=== PATIENT | female | born 1940 | race Caucasian/White ===

== ENCOUNTER 2016-10-01 12:18 | Outpatient (CLI) ==
[2016-06-04 12:34] VITALS: BMI 26.8
[2016-10-01 13:33] LABS: BASOPHILS % (AUTO) 0.6 % (0.0-3.0); EOSINOPHILS # (AUTO) 0.1 K/ul (0.0-0.7); EOSINOPHILS % (AUTO) 1.3 % (0.0-7.0); HEMATOCRIT 37.4 % (37.0-47.0); HEMOGLOBIN 12.4 g/dl (12.0-16.0); IMMATURE GRANULOCYTE % (AUTO) 0.3 % (0.0-5.0); LYMPHOCYTES # (AUTO) 1.9 K/uL (0.60-3.4); LYMPHOCYTES % (AUTO) 28.7 (10.0-50.0); MEAN CORPUSCULAR HEMOGLOBIN 30.8 pg (27.0-31.0); MEAN CORPUSCULAR HGB CONC 33.2 (31.8-35.4); MONOCYTES # (AUTO) 0.4 K/uL (0.4-2.0); MONOCYTES % (AUTO) 5.4 (0-10); NEUTROPHILS # (AUTO) 4.3 K/ul (2.0-6.9); NEUTROPHILS % (AUTO) 63.7; PLATELET COUNT 190 10^3/uL (140-440); RED BLOOD COUNT 4.02 10^6/ul (4.20-5.40); WHITE BLOOD COUNT 6.68 K/ul (4.6-10.2)
[2016-10-01 13:39] LABS: ALBUMIN 4.1 g/dL (3.4-5.0); ALBUMIN/GLOBULIN RATIO 1.24; ANION GAP 13.5; BILIRUBIN,TOTAL 0.57 mg/dL (0.00-1.20); BUN/CREATININE RATIO 22.91; CALCIUM 9.8 mg/dL (8.2-10.2); CHOL/HDL RATIO 3.9 (4.5-5.5); CREATININE 0.96 mg/dL (0.60-1.30); POTASSIUM 4.5 mmol/L (3.5-5.10); TOTAL PROTEIN 7.4 g/dL (5.8-8.1)
== END 2016-10-01 12:19 | disposition home or self-care (01) ==
LOC: LAB 12:18
PROVIDERS: ATTEND Emergency Medicine
DX: E78.5 Hyperlipidemia, unspecified (principal); I10 Essential (primary) hypertension; M19.90 Unspecified osteoarthritis, unspecified site
CPT/HCPCS: 36415; 80053; 80061; 85025

== ENCOUNTER 2017-03-07 11:44 | Outpatient (CLI) ==
[2016-06-04 12:34] VITALS: BMI 26.8
[2017-03-07 13:08] LABS: BASOPHILS % (AUTO) 0.6 % (0.0-3.0); EOSINOPHILS # (AUTO) 0.1 K/ul (0.0-0.7); EOSINOPHILS % (AUTO) 2.2 % (0.0-7.0); HEMATOCRIT 35.6 % (37.0-47.0); HEMOGLOBIN 11.9 g/dl (12.0-16.0); IMMATURE GRANULOCYTE % (AUTO) 0.2 % (0.0-5.0); LYMPHOCYTES # (AUTO) 1.5 K/uL (0.60-3.4); LYMPHOCYTES % (AUTO) 27.5 (10.0-50.0); MEAN CORPUSCULAR HEMOGLOBIN 31.1 pg (27.0-31.0); MEAN CORPUSCULAR HGB CONC 33.4 (31.8-35.4); MONOCYTES # (AUTO) 0.4 K/uL (0.4-2.0); MONOCYTES % (AUTO) 7.5 (0-10); NEUTROPHILS # (AUTO) 3.3 K/ul (2.0-6.9); PLATELET COUNT 176 10^3/uL (140-440); RED BLOOD COUNT 3.83 10^6/ul (4.20-5.40); WHITE BLOOD COUNT 5.35 K/ul (4.6-10.2)
[2017-03-07 13:53] LABS: ALBUMIN 3.8 g/dL (3.4-5.0); ALBUMIN/GLOBULIN RATIO 1.19; ANION GAP 16.3; BILIRUBIN,TOTAL 0.4 mg/dL (0.00-1.20); BUN/CREATININE RATIO 29.21; CALCIUM 10.4 mg/dL (8.2-10.2); CHOL/HDL RATIO 4.7 (4.5-5.5); CREATININE 0.89 mg/dL (0.60-1.30); POTASSIUM 4.3 mmol/L (3.5-5.10)
== END 2017-03-07 11:45 | disposition home or self-care (01) ==
LOC: LAB 11:44
PROVIDERS: ATTEND Emergency Medicine
DX: E78.5 Hyperlipidemia, unspecified (principal); I10 Essential (primary) hypertension
CPT/HCPCS: 36415; 80053; 80061; 84443; 85025

== ENCOUNTER 2017-04-21 14:02 | Inpatient (IN) ==
[2017-04-21 15:44] VITALS: BMI 23.5
[2017-04-21 16:20] LABS: CREATINE KINASE 38 U/L
[2017-04-21] MEDS: SODIUM CHLORIDE 1,000 ML IV SCH (17:50)
[2017-04-21] MEDS: REQUIP PO SCH ×2 (17:53→21:20)
[2017-04-21] MEDS: KEFLEX PO SCH (21:22)
[2017-04-21] MEDS: MEVACOR PO SCH (21:25)
[2017-04-21] MEDS ORDERED: MEVACOR PO SCH (21:30)
[2017-04-21 23:29] LABS: CREATINE KINASE 33 U/L
[2017-04-22 03:39] LABS: ADD URINE MICROSCOPIC YES; BILIRUBIN,URINE Negative (NEGATIVE); KETONES,URINE Negative (NEGATIVE); LEUKOCYTE ESTERASE ,URINE Trace (NEGATIVE); NITRITE,URINE Negative (NEGATIVE); PROTEIN,URINE Negative (NEGATIVE); URINE, BLOOD Negative (NEGATIVE)
[2017-04-22 05:17] LABS: ALBUMIN/GLOBULIN RATIO 1.11; BILIRUBIN,TOTAL 0.27 mg/dL (0.00-1.20); BUN/CREATININE RATIO 33.76; CALCIUM 8.9 mg/dL (8.2-10.2); CREATININE 0.77 mg/dL (0.60-1.30); TOTAL PROTEIN 5.7 g/dL (5.8-8.1)
[2017-04-22 07:27] LABS: BASOPHILS % (AUTO) 0.2 % (0.0-3.0); EOSINOPHILS % (AUTO) 0.1 % (0.0-7.0); HEMATOCRIT 33.7 % (37.0-47.0); HEMOGLOBIN 11.5 g/dl (12.0-16.0); IMMATURE GRANULOCYTE % (AUTO) 0.8 % (0.0-5.0); LYMPHOCYTES # (AUTO) 1.9 K/uL (0.60-3.4); LYMPHOCYTES % (AUTO) 15.3 (10.0-50.0); MEAN CORPUSCULAR HEMOGLOBIN 31.5 pg (27.0-31.0); MEAN CORPUSCULAR HGB CONC 34.1 (31.8-35.4); MEAN CORPUSCULAR VOLUME 92.3 fl (81.0-99.0); MONOCYTES # (AUTO) 0.5 K/uL (0.4-2.0); MONOCYTES % (AUTO) 3.7 (0-10); NEUTROPHILS % (AUTO) 79.9; PLATELET COUNT 166 10^3/uL (140-440); RED BLOOD COUNT 3.65 10^6/ul (4.20-5.40); WHITE BLOOD COUNT 12.47 K/ul (4.6-10.2)
[2017-04-22] MEDS ORDERED: ASPIRIN EC PO SCH (08:00)
[2017-04-22] MEDS: ASPIRIN EC PO SCH (08:12)
[2017-04-22] MEDS: COREG PO SCH (08:12)
[2017-04-22] MEDS ORDERED: EPA PO SCH (09:00)
[2017-04-22] MEDS ORDERED: MULTIVITAMIN PO SCH (09:00)
[2017-04-22] MEDS ORDERED: OMEGA PO SCH (09:00)
[2017-04-22] MEDS ORDERED: FISH OIL PO SCH (09:00)
[2017-04-22] MEDS ORDERED: VITAMIN D3 PO SCH ×21 (09:00)
[2017-04-22] MEDS ORDERED: NON-FORMULARY MEDICATION (Mometasone Furoate [Nasonex] 17 GM) NS SCH ×22 (09:00)
[2017-04-22] MEDS ORDERED: NON-FORMULARY MEDICATION (Ferrous Sulfate [Ferrous Sulfate] 325 MG) PO SCH ×22 (09:00)
[2017-04-22] MEDS ORDERED: CALCIUM CARBONATE PO SCH ×21 (09:00)
[2017-04-22] MEDS ORDERED: DHA PO SCH (09:00)
[2017-04-22] MEDS: OMEGA-3 FISH OIL PO SCH (09:36)
[2017-04-22] MEDS: ZESTORETIC 20-12.5 MG TAB PO SCH (09:37)
[2017-04-22] MEDS: KEFLEX PO SCH ×2 (09:37→20:03)
[2017-04-22] MEDS: CALCIUM 500 + VIT D 200 MG TABLET PO SCH (09:37)
[2017-04-22] MEDS: FLONASE NAS SCH (09:38)
[2017-04-22] MEDS: MULTIVITAMIN PO SCH (09:38)
[2017-04-22] MEDS: FERROUS SULFATE PO SCH (09:38)
[2017-04-22] MEDS: COCONUT OIL 1000 MG PO SCH (09:40)
[2017-04-22] MEDS: ZINC GLUCONATE 50 MG PO SCH (09:41)
[2017-04-22] MEDS ORDERED: DECADRON 4 MG/ML SDV IVP STA (12:50)
--- NOTE | 2017-04-22 13:30 | US ---
EXAM: Bilateral carotid artery Doppler History: Dizziness and blurred vision. Technique: Multiple sonographic images through the bilateral internal carotid arteries were obtained . Color duplex Doppler was used to interrogate vascular flow. Findings: The right ICA peak systolic velocity is within normal limits measuring 80 cm/sec. The right ICA/cca PSV ratio is normal at 0.9. The right vertebral artery is patent and demonstrates antegrade flow. G ray scale images demonstrate mild plaque buildup within the proximal right internal carotid artery. The left ICA peak systolic velocity is within normal limits measuring 90 cm/sec. The left ICA/cca PS V ratio is normal at 1.3. The left vertebral artery is patent and demonstrates antegrade flow. Burrows scale images demonstrate mild to moderate plaque buildup within the left internal carotid artery. Impression: No significant hemodynamic stenosis of the bilateral internal carotid arteries.
--- NOTE | 2017-04-22 14:12 | MRI ---
EXAM: Brain MRI without contrast. HISTORY: Vertigo. COMPARISON: Brain MRI 02/23/2015 and greater artery duplex ultrasound 04/22/2017. TECHNIQUE: Multiplanar, multisequence MR images were acquired of the brain without contrast. FINDINGS: The midline structures are central and the craniocervical junction is unremarkable. The v entricles, sulci and cisterns are prominent compatible age related involutional changes. There are n o abnormal extra-axial fluid collections. The brain parenchyma has artifact on the diffusion weighted sequence traversing the lateral ventricle which is not present on the other sequences. There are no areas of restricted diffusion to suggest acute hypoperfusion or infarction. Small scattered FLAIR hyperintensities are present in the suprate ntorial white matter consistent with minor leukomalacia. The corpus callosum has a normal configurat ion. The pituitary gland is small. There are no intraorbital masses. There has been previous lens surgery bilaterally. Minor mucosal t hickening is present in the frontal sinus and scattered in the ethmoid air cells bilaterally. There is mild polypoid mucosal thickening in the right maxillary sinus. Leftward nasal septal deviation is present. Middle ears and mastoids are unremarkable. Flow voids are present in the major intracranial arteries and dural venous sinuses. Minor degenerativ e changes are present in the upper cervical spine. IMPRESSION: 1. Age related involutional changes and minor chronic ischemic small vessel disease. 2. Small pituitary gland. 3. No intracranial mass, hemorrhage or acute cerebral infarct.
--- NOTE | 2017-04-22 15:13 | DI ---
EXAM: Two views of the chest. History: Cough. Comparison: Chest radiograph 03/12/2013 Findings: Heart size is normal. No focal consolidation. Atherosclerotic vascular calcifications. No appreciable pleural fluid and no pneumothorax. No acute osseous abnormalities. Impression: No acute cardiopulmonary process.
[2017-04-22] MEDS ORDERED: LOVASTATIN 40 MG PO SCH ×22 (17:00)
[2017-04-22] MEDS: SODIUM CHLORIDE 1,000 ML IV SCH (19:52)
[2017-04-22] MEDS: MEVACOR PO SCH (20:03)
[2017-04-22] MEDS: REQUIP PO SCH (20:03)
[2017-04-23 04:59] LABS: BASOPHILS % (AUTO) 0.2 % (0.0-3.0); HEMATOCRIT 34.5 % (37.0-47.0); HEMOGLOBIN 11.6 g/dl (12.0-16.0); IMMATURE GRANULOCYTE % (AUTO) 0.9 % (0.0-5.0); LYMPHOCYTES # (AUTO) 1.6 K/uL (0.60-3.4); LYMPHOCYTES % (AUTO) 12.9 (10.0-50.0); MEAN CORPUSCULAR HEMOGLOBIN 30.9 pg (27.0-31.0); MEAN CORPUSCULAR HGB CONC 33.6 (31.8-35.4); MONOCYTES # (AUTO) 0.4 K/uL (0.4-2.0); MONOCYTES % (AUTO) 3.1 (0-10); NEUTROPHILS # (AUTO) 10.5 K/ul (2.0-6.9); NEUTROPHILS % (AUTO) 82.9; PLATELET COUNT 181 10^3/uL (140-440); RED BLOOD COUNT 3.75 10^6/ul (4.20-5.40)
[2017-04-23 05:22] LABS: ALBUMIN 3.1 g/dL (3.4-5.0); ALBUMIN/GLOBULIN RATIO 1.11; BILIRUBIN,TOTAL 0.32 mg/dL (0.00-1.20); BUN/CREATININE RATIO 37.03; CREATININE 0.81 mg/dL (0.60-1.30); TOTAL PROTEIN 5.9 g/dL (5.8-8.1)
[2017-04-23] MEDS: OMEGA-3 FISH OIL PO SCH (08:26)
[2017-04-23] MEDS: CALCIUM 500 + VIT D 200 MG TABLET PO SCH (08:27)
[2017-04-23] MEDS: FERROUS SULFATE PO SCH (08:27)
[2017-04-23] MEDS: COREG PO SCH (08:27)
[2017-04-23] MEDS: ZESTORETIC 20-12.5 MG TAB PO SCH (08:27)
[2017-04-23] MEDS: ASPIRIN EC PO SCH (08:27)
[2017-04-23] MEDS: MULTIVITAMIN PO SCH (08:27)
[2017-04-23] MEDS: KEFLEX PO SCH (08:27)
[2017-04-23] MEDS: FLONASE NAS SCH (08:28)
[2017-04-23] MEDS: ZINC GLUCONATE 50 MG PO SCH (09:00)
[2017-04-23] MEDS: COCONUT OIL 1000 MG PO SCH (09:00)
[2017-04-23 10:47] VITALS: BP 119/65; TEMP 97
--- NOTE | 2017-05-01 10:38 | PN ---
DATE OF SERVICE: 03/22/17 SUBJECTIVE: The patient is admitted with severe dizziness, not able to walk. MRI results are pending. Telemetry showing bradycardia. EKG showing bradycardia. Dizziness has improved today. REVIEW OF SYSTEMS: CONSTITUTIONAL: No fever, no chills. HEENT: Normal. ENDOCRINE: No weight gain, no weight loss. CVS: No angina symptoms. No CHF symptoms. No palpitations. No atypical chest pain for CAD. No shortness of breath. No PND, no orthopnea. RESPIRATORY: No cough, no hemoptysis. GI: No nausea, no vomiting. No abdominal pain. : No hematuria. No polyuria. MUSCULOSKELETAL:. No joint swelling. PSYCHIATRIC: Not anxious. No depression. No suicidal thoughts. No homicidal thoughts. SKIN: Intact. No rash. PHYSICAL EXAMINATION: V/S: BP 192/67, respiratory rate 17, heart rate 69, temperature 97.9, saturation 94% on room air. HEENT: Normocephalic, atraumatic. Mucosa dry. Pallor positive. No icterus. NECK: Supple. No JVD, no carotid bruit. No lymphadenopathy. LUNGS: Decreased entry. Clear to auscultation. No rales or rhonchi. HEART: S1, S2 normal. No S3. No murmur, gallop or regurgitation. ABDOMEN: Soft, nontender. Bowel sounds active. No rigidity. No rebound or guarding. No CVA tenderness. EXTREMITIES: No clubbing, cyanosis or pedal edema. MUSCULOSKELETAL: Grossly intact. NEUROLOGIC: Awake, alert, oriented times three. No focal deficit. LYMPHATIC: No lymph nodes palpable. SKIN: Intact. LABS: White count 12.47, hemoglobin 11.5, hematocrit 33.7, platelet count 166. Sodium 140, potassium 4.0, chloride 103, bicarb 26, BUN 26, creatinine 0.77. UA trace leukocyte esterase. ASSESSMENT: 1. SEVERE DIZZINESS, MOST LIKELY BENIGN POSITIONAL VERTIGO FROM LABRYNTHITIS, RULE OUT STROKE. 2. HISTORY OF HYPERTENSION 3. URTI 4. ANEMIA 5. OSTEOPOROSIS 6. RESTLESS LEG SYNDROME PLAN: 1. Continue IV fluids 2. MRI of the brain, pending report 3. Chest x-ray 4. Carotid ultrasound 5. 1 cc Decadron 6. Will follow with the patient in daily rounds TIME SPENT: More than 35 minutes MTDD
--- NOTE | 2017-05-16 11:47 | DS ---
DATE OF SERVICE: 04/23/17 FINAL DIAGNOSIS: 1. SEVERE DIZZINESS MOST LIKELY BENIGN POSITIONAL VERTIGO FROM LABRYNTHITIS, STROKE HAS BEEN RULED OUT 2. HISTORY OF HYPERTENSION 3. RECENT UPPER RESPIRATORY INFECTION 4. ANEMIA OF CHRONIC DISEASE, STABLE 5. OSTEOPOROSIS 6. RESTLESS LEG SYNDROME 7. HISTORY OF MIGRAINE HEADACHES 8. CATARACT BILATERAL 9. EAR SURGERY/REPAIR 10. 6, PARA 5 11. OSTEOARTHRITIS OF THE KNEE DISCHARGE INSTRUCTIONS: 1. Discharge the patient home 2. Followup at [facility] in 5 to 7 days MEDICATIONS AT DISCHARGE: Aspirin 81 mg p.o. daily Calcium with Vitamin D Coreg 12.5 mg p.o. b.i.d. Coconut Oil Benadryl 50 mg p.o. daily Ferrous Sulfate Lisinopril/Hydrochlorothiazide Mevacor Nasonex Vitamin D Protonix Requip NEW PRESCRIPTIONS: None DIET INSTRUCTIONS: Cardiac and healthy ACTIVITY: As much as tolerated. Take Antivert twice a day as needed for dizziness. No new medications were given. SMOKING: Former smoker DISEASE SPECIFIC EDUCATION: Dizziness, vertigo, fall risk, osteoporosis and fall risk discussed. Osteoporosis and bone fractures discussed. HOSPITAL COURSE: This is a 76-year-old female came to the office with severe dizziness, inability to walk, almost fell down at home. At that time, the patient was admitted to the hospital from the office directly. MRI of the brain and carotid ultrasound was ordered. The patient was given Decadron thinking maybe from benign positional vertigo. MRI did not show any acute findings. Small pituitary gland was seen. Carotid ultrasound done which showed no significant hemodynamic changes. Chest x-ray no acute cardiopulmonary process. Hemoglobin was 11.5, 11.6. BUN and creatinine were steady. Cardiac enzymes were negative. Blood pressure was good. By the next day the patient was alot better. Dizziness was atributed to only benign positional vertigo and questionable labrynthitis, advised to continue Antivert and steroids which were given as outpatient. TIME SPENT: MORE THAN 55 MINUTES MTDD
== END 2017-04-23 13:05 | disposition home or self-care (01) | DRG 149 ==
LOC: MEDSURG A 14:02
PROVIDERS: ADMIT Emergency Medicine; ATTEND Emergency Medicine
DX: H81.10 Benign paroxysmal vertigo, unspecified ear (principal); H83.09 Labyrinthitis, unspecified ear; I10 Essential (primary) hypertension; J06.9 Acute upper respiratory infection, unspecified; D50.0 Iron deficiency anemia secondary to blood loss (chronic); R00.1 Bradycardia, unspecified; M81.0 Age-related osteoporosis without current pathological fracture; G25.81 Restless legs syndrome; M17.9 Osteoarthritis of knee, unspecified; Z86.69 Personal history of other diseases of the nervous system and sense organs; Z79.899 Other long term (current) drug therapy
CPT/HCPCS: 36415; 80053; 81001; 82550; 84484; 85025; 93005; 93010; 99223; 99233; 99239

== ENCOUNTER 2017-08-28 16:12 | Outpatient (CLI) | END 2017-08-28 16:13 | disposition home or self-care (01) | LOC: LAB 16:12 | PROVIDERS: ATTEND Emergency Medicine | DX: E78.5 Hyperlipidemia, unspecified (principal); I10 Essential (primary) hypertension | CPT/HCPCS: 36415; 80053; 80061; 84443; 85025 ==

== ENCOUNTER 2017-11-26 09:40 | Outpatient (CLI) | payer OTHER ==
--- NOTE | 2017-11-26 11:19 | DI ---
EXAM: Three views of the left hand. History: Left hand pain. Findings: No acute fracture or dislocation. No abnormal calcifications or radiopaque foreign bodies . Mild to moderate polyarticular joint space narrowing with a few small dorsal osteophytes involving the IP joints. Mild osteopenia. Impression: 1. No acute osseous abnormality. 2. 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
== END 2017-11-26 09:41 | disposition home or self-care (01) ==
LOC: RAD 09:40
PROVIDERS: ATTEND Emergency Medicine
DX: M79.642 Pain in left hand (principal); E78.5 Hyperlipidemia, unspecified; I10 Essential (primary) hypertension
CPT/HCPCS: 36415; 80053; 80061; 84443; 85025

== ENCOUNTER 2018-02-23 12:59 | Outpatient (CLI) ==
--- NOTE | 2018-02-23 15:15 | DI ---
EXAM: Chest two views HISTORY: Acute upper respiratory infection, unspecified COMPARISON: 04/21/2017 TECHNIQUE: Two views of the chest were performed FINDINGS: The lungs are clear. There is no pleural effusion or pneumothorax. The heart is normal i n size. The mediastinal contour is normal, noting atherosclerosis. There are no acute abnormalities of the bones. IMPRESSION: No acute cardiopulmonary process.
== END 2018-02-23 13:00 | disposition home or self-care (01) ==
LOC: LAB 12:59
PROVIDERS: ATTEND Emergency Medicine
DX: E78.5 Hyperlipidemia, unspecified (principal); I10 Essential (primary) hypertension; J06.9 Acute upper respiratory infection, unspecified
CPT/HCPCS: 36415; 80053; 85025

== ENCOUNTER 2018-04-28 12:30 | Outpatient (CLI) ==
--- NOTE | 2018-04-29 08:55 | MAMMO ---
EXAM: Bilateral digital screening mammogram (2-D and 3-D) History: Screening Comparison: None available. Findings: MLO and CC views of bilateral breasts demonstrate scattered fibroglandular breast parenchy ma. CAD was reviewed by the radiologist. Tomosynthesis was performed. There are no dominant masses , no suspicious microcalcifications and no architectural distortions. Benign bilateral vascular calc ifications. Impression: Benign mammogram. Recommend followup routine screening mammography in 1 year. BIRADS 2
== END 2018-04-28 12:31 | disposition home or self-care (01) ==
LOC: RAD 12:30
PROVIDERS: ATTEND Nurse Practitioner Family
DX: Z12.31 Encounter for screening mammogram for malignant neoplasm of breast (principal)
CPT/HCPCS: 77067

== ENCOUNTER 2018-08-11 10:19 | Outpatient (CLI) | END 2018-08-11 10:20 | disposition home or self-care (01) | LOC: RHC-LAB 10:19 | PROVIDERS: ATTEND Nurse Practitioner Family | DX: J02.9 Acute pharyngitis, unspecified (principal) | CPT/HCPCS: 87651 ==

== ENCOUNTER 2019-01-19 08:18 | Outpatient (CLI) | END 2019-01-19 08:19 | disposition home or self-care (01) | LOC: LAB 08:18 | PROVIDERS: ATTEND Nurse Practitioner Family | DX: E78.5 Hyperlipidemia, unspecified (principal); I10 Essential (primary) hypertension | CPT/HCPCS: 36415; 80053; 80061; 84443; 85025 ==